=== PATIENT | male | born 1985 | race Caucasian/White ===

== ENCOUNTER → 2017-11-05 | Outpatient (CLI) | payer BC ==
[2017-11-05] VITALS (9 sets, daily range): BP systolic 131–160; BP diastolic 80–113
[~2017-11-05] VITALS: Ht 172.7 cm; Wt 108.9 kg
[~2017-11-05] MED LIST: CHOL100013 PO; GELATIN SPONGE SIZE 12-7MM SPONGE. ONE; LIDOCAINE WITH 8.4% SOD BICARB 3 ML DISP.SYRIN. IJ ONE; LIDOCAINE WITH 8.4% SOD BICARB 3 ML DISP.SYRIN. ONE; MIDAZOLAM HCL/PF 2 MG/2 ML VIAL. IV ONE; MIDAZOLAM HCL/PF 2 MG/2 ML VIAL. ONE; POTA10TA12 PO; PSYL0.527 PO; SPIR25TA5 PO; fentaNYL PF VIAL 100 MCG/2 ML VIAL IV ONE; fentaNYL PF VIAL 100 MCG/2 ML VIAL ONE
[2017-11-05 08:45] LABS: BASO # 0.1 x10^3/uL (0.0-0.2); BASO % 1 % (0-3); EOS # 0.1 x10^3/uL (0.0-0.7); EOS % 2 % (0-3); HEMATOCRIT 49.2 % (39.0-53.0); HEMOGLOBIN 17.1 g/dL (13.0-17.5); LYMPH # 2.6 x10^3/uL (1.0-4.8); LYMPH % 35 % (24-48); MEAN CORPUSCULAR HEMOGLOBIN 32 pg (25-35); MEAN CORPUSCULAR HGB CONC 35 g/dL (31-37); MEAN CORPUSCULAR VOLUME 91 fL (79-100); MONO # 0.7 x10^3/uL (0.0-1.1); MONO % 9 % (0-9); NEUT # 3.8 x10^3uL (1.8-7.7); NEUT % 52 % (31-73); PLATELET COUNT 213 x10^3/uL (140-400); RED BLOOD COUNT 5.43 x10^6/uL (4.30-5.70); RED CELL DISTRIBUTION WIDTH 13.3 % (11.5-14.5); WHITE BLOOD COUNT 7.3 x10^3/uL (4.0-11.0)
[2017-11-05 08:54] LABS: CALCIUM 8.2 mg/dL (8.5-10.1); CREATININE 1.6 mg/dL (0.7-1.3); GFR 50.3; POTASSIUM 3.6 mmol/L (3.5-5.1)
[2017-11-05 08:55] LABS: PROTHROMBIN TIME PATIENT 11.3 SEC (11.7-14.0)
[2017-11-05 08:58] LABS: ALBUMIN 3.4 g/dL (3.4-5.0); PHOSPHORUS 3.4 mg/dL (2.6-4.7)
[2017-11-05 09:00] LABS: BILIRUBIN,URINE NEGATIVE (NEG); CLARITY,URINE CLEAR; COLOR,URINE YELLOW; NITRITE,URINE NEGATIVE (NEG); PH,URINE 6.5; PROTEIN,URINE >=300 mg/dL (NEG-TRACE); UROBILINOGEN,URINE 0.2 mg/dL (0.2 mg/dL)
[2017-11-05 09:11] LABS: BACTERIA,URINE FEW /HPF (0-FEW); SQUAMOUS EPITHELIAL CELL,UR OCC /LPF; WBC,URINE OCC /HPF (0-4)
--- NOTE | 2017-11-05 10:22 | PDOC ---
MODERATE SEDATION ASSESSMENT RISKS/ALTERNATIVES Risks/Alternatives Risks and alternatives of this type of sedation and procedure discussed with: RISK/ALTERNATIVES: Patient H & P ON CHART H & P H & P on chart and reviewed for co-morbid conditions and appropriate labs. H&P ON CHART: Yes STATUS PREG STATUS ASSESSED: Yes MEDS/ALLERGIES REVIEWED Meds/Allergies Reviewed Medications and Allergies including time and route of recently administered narcotics and sedatives. MEDS/ALLERGIES REVIEWED: Yes ASA RATING ASA RATING: II AIRWAY ASSESSMENT Airway Assessment Airway patency, oral function limitations, presence of caps, crowns, dentures, partials, and ability to extend neck assessed. AIRWAY ASSESSMENT: Yes MALLAMPATI SCORE MALLAMPATI SCORE: II PRE-SEDATION ASSESSMENT PRE-SEDATION ASSESSMENT: Yes JASVIR ROMAN MD Nov 05, 2017 10:22
--- NOTE | 2017-11-05 10:24 | PDOC1 ---
History and Physical Date of Procedure Date of Admission History of Present Illness Reason for Visit Adult male with proteinuria Past Medical History Past Medical History see nursing pre-op assessment Current Medications Current Medications Current Medications Lidocaine/Sodium Bicarbonate (Buffered Lidocaine 1%) 3 ml STK-MED ONCE .ROUTE ; Start 11/05/17 at 09:36; Stop 11/05/17 at 09:37; Status DC Gelatin (Gelfoam Size 12-7mm) 1 each STK-MED ONCE .ROUTE ; Start 11/05/17 at 09 :36; Stop 11/05/17 at 09:37; Status DC Midazolam HCl (Versed) 2 mg STK-MED ONCE .ROUTE ; Start 11/05/17 at 09:41; Stop 11/05/17 at 09:42; Status DC Fentanyl Citrate (Fentanyl 2ml Vial) 100 mcg STK-MED ONCE .ROUTE ; Start at 09:41; Stop 11/05/17 at 09:42; Status DC Lidocaine/Sodium Bicarbonate (Buffered Lidocaine 1%) 9 ml 1X ONCE IJ Last administered on 11/05/17at 10:14; Start 11/05/17 at 10:15; Stop 11/05/17 at 10:16 ; Status DC Midazolam HCl (Versed) 2 mg 1X ONCE IV Last administered on 11/05/17at 10:15; Start 11/05/17 at 10:15; Stop 11/05/17 at 10:16; Status DC Fentanyl Citrate (Fentanyl 2ml Vial) 100 mcg 1X ONCE IV Last administered on at 10:15; Start 11/05/17 at 10:15; Stop 11/05/17 at 10:16; Status DC Active Scripts Active Reported Vitamin D (Cholecalciferol (Vitamin D3)) 1,000 Unit Capsule 1 Cap PO DAILY Fiber (Psyllium Husk) 0.52 Gm Capsule 5 Cap PO [id number] Potassium Chloride 10 Meq Tab.sr.24h 10 Meq PO DAILY Spironolactone 25 Mg Tablet 4 Tab PO 5XDAY Allergies Allergies: Coded Allergies: No Known Drug Allergies (Unverified , 11/05/17) Physical Exam Vital Signs Vital Signs Date Time Temp Pulse Resp B/P (MAP) Pulse Ox O2 Delivery O2 Flow Rate FiO2 11/05/17 10:16 54 12 95 Nasal Cannula 4.0 11/05/17 08:54 98.3 140/89 (106) 98.3 Other see nursing pre-op assessment Assessment Assessment Proteinuria Plan Plan US renal biopsy JASVIR ROMAN MD Nov 05, 2017 10:24
--- NOTE | 2017-11-05 10:25 | PDOC ---
BRIEF OPERATIVE NOTE Pre-Op Diagnosis Proteinuria Post-Op Diagnosis same Procedure Performed US right renal biopsy Surgeon Jn Anesthesia Type: Conscious Sedation Specimens Obtained 4 x 18g cores divided between Formalin and Manny's solution Findings Right renal biopsy Complications No immediate JASVIR ROMAN MD Nov 05, 2017 10:25
--- NOTE | 2017-11-05 18:35 | RAD ---
Procedure: Ultrasound guided right renal biopsy Clinical Indication: 32-year-old with proteinuria Sedation: Conscious sedation was administered with a total intraprocedural koex-qd-obso time of 20 minutes. The patient was monitored by a qualified independent observer throughout the time of sedation. Please refer to the medical record for exact doses of medications utilized to achieve moderate sedation. Antibiotics: None Sterility: All elements of maximal sterile barrier technique including the use of a cap, mask, sterile gown, sterile gloves, large sterile sheet, appropriate hand hygiene, and 2% chlorhexidine for cutaneous antisepsis (or acceptable alternative antiseptic per current guidelines) were followed for this procedure. Consent: The procedure was explained in its entirety to the patient or the patients designated route service representative by a member of the treatment team, including a discussion of the risks, benefits and commonly accepted alternatives to the procedure, as well as the expected consequences of no therapy whatsoever. Discussion of the risks included, but was not limited to, those that are most frequent and those that are rare but possibly severe or life-threatening, as well as the possibility of unforeseen complications. Technique and Findings: Following informed consent, the patient was prepped and draped in usual sterile fashion. Ultrasound interrogation of the right kidney was performed demonstrating no hydronephrosis or masses. A hardcopy ultrasound image was recorded as a 17-gauge needle guide was advanced to the inferior pole of the right kidney and 4 x 18-gauge core biopsy specimens were obtained and divided between formalin and Manny's solution. Gelfoam pledgets were applied as the needle guide was removed and hemostasis was achieved with manual compression. Complications: None Impression: 1. Ultrasound-guided right renal biopsy as described
--- NOTE | 2017-11-08 13:09 | PATHOLOGY ---
[facility] Accession Number: [id number] . 01 Material submitted: . RIGHT RENAL BIOPSY . 01 Clinical history: . Proteinuria See attached requisition for additional information . 02 Diagnosis: Special studies report received from [employer], [address] [place] [address], [facility] [address] [address], on case [id number], labeled with their number [id number], dated 11/06/2017. . Specimen submitted: By Kalia Barragan MD For Kidney, biopsy . DIAGNOSIS: Focal Segmental and Global Glomerulosclerosis. See Comment. . Tubular Atrophy and Interstitial Fibrosis, Moderate to Severe. . Arteriosclerosis, Mild. . Comment: Sampling for light microscopy shows 9 glomeruli, 5 of which are globally sclerotic and 2 display segmental scleroses (FSGS). The differential diagnosis includes primary and secondary forms of the disease. In this patient, in the light of renal biopsy findings a secondary form is favored. Clinical correlation is required. . Clinical History: The patient is a 32 year-old male who presents for evaluation of high blood present and proteinuria. . Gross Description: Received from [facility] via [facility] are two specimen bottles; one bottle contains formalin and the other contains Bogdan's fixative. The bottles are labeled with the patient's name (Jerod Dolan). Both bottles are foreign. . Received in formalin are two pieces of vu tissue measuring 1.0 x 0.1 x 0.1 cm (with a fatty end, dissected off) and 1.7 x 0.1 x 0.1 cm (vu). Two ends are submitted for electron microscopy and the remainder of the tissue is submitted in its entirety for light microscopy. . Received in Bogdan's fixative are two pieces of vu tissue measuring 1.0 x 0.1 x 0.1 cm (folded) and 1.3 x 0.1 x 0.1 cm. The specimen is submitted in its entirety for immunofluorescence microscopy. . Microscopic Description: LIGHT MICROSCOPY: . Tissue submitted for light microscopic examination is represented by approximately 80% cortex and 20% medulla. There are up to nine glomeruli present, five of which are globally sclerotic. The glomeruli range from normal to mildly enlarged and exhibit mild segmental increase in mesangial matrix. Two glomeruli display perihilar segmental sclerosis. The glomeruli focally display juxtaglomerular apparatus hyperplasia. One glomerulus displays ischemic changes. There is no evidence of endocapillary proliferation, necrosis, or crescent formation. There is moderate to severe tubular atrophy and interstitial fibrosis involving approximately 50% of the cortex sampled. Focal tubulointerstitial calcification is identified. There is mild chronic inflammation seen in the areas of sampled. Focal tubulointerstitial calcification is identified. There is mild chronic inflammation seen in the areas of tubulointerstitial scarring. Blood vessels exhibit mild intimal fibrosis. No evidence of arteritis identified. Toluidine blue-stained sections for electron microscopy show two glomeruli, none of which are globally sclerotic. One glomerulus displays segmental sclerosis. The rest of the histological changes are similar to those described above. . Standard of care requirements for proper analysis of renal biopsies mandates serial sections, and PAS, Murdock silver, trichrome and SMMT stains at multiple levels. PAS stains are used to evaluate various aspects of the glomerular, tubular, and vascular basement membranes. Murdock silver stains are used to evaluate thickening, reduplication, "spiking" or "bubbling" of the glomerular basement membrane. Toluidine blue stained sections highlight glomerular basement membranes and demonstrates unusual types of deposits. It also reveals details of tubular epithelial cells and aids in the analysis of vascular lesions. Mallory trichrome stains are used to evaluate interstitial fibrosis and basement membrane deposits. The SMMT stain helps evaluate basement membrane changes, immune deposits and tubulointerstitial scarring. Controls are routinely run on all special stains and are verified for acceptability. A review of the technical quality of routine slides is made before results are reported. . IMMUNOFLUORESCENCE: The sections are stained for IgG, IgM, IgA, C3, C1q, albumin, fibrinogen, kappa and lambda light chains. Nine glomeruli are present for evaluation including five globally sclerotic. All stains are negative in glomeruli. There is no significant extraglomerular staining. [employer] and lambda stain equally throughout the tubulointerstitium. . Positive and negative controls are run on all immunofluorescent stains and are verified for acceptability before results are reported. Internal antigens serve as positive controls. . ELECTRON MICROSCOPY: Two blocks are prepared. Ultrastructural evaluation of a glomerulus reveals basement membranes which appear to be of normal thickness with mild segmental thickening. Glomerular capillary loops are patent. No immune-type electron-dense deposits are present along the glomerular basement membranes or within the mesangium. There is moderate to severe epithelial foot process effacement. The tubular basement membranes show mild thickening. . Special procedures including immunofluorescence and electron microscopy correlate with the light microscopy findings. . Note: Some of the tests reported here may have been developed and performance characteristics determined by [employer]. They have not been cleared or approved by the U.S. Food and Drug Administration (FDA). The FDA does not require this test to go through premarket FDA review. This test is used for clinical purposes. It should not be regarded as investigational or for research. [employer] is certified under the Clinical Laboratory Improvement Amendments of 1988 (CLIA) as qualified to perform high complexity clinical laboratory testing. . Physician/Physician's office called on 11/06/2017 at 3:11 PM Central. . *I have reviewed the clinical history, the pertinent gross findings, all microscopic materials, discussed the case with the clinician when appropriate, and have rendered the final diagnosis. . CPT Codes Performed: 00222; 25803f1; 56945; 83202; 74425-AT; 40501h4 lCD Codes: N06.1 . Final Diagnosis performed by Alexey Burr M.D. Electronically signed 11/06/2016 5:16:07 PM . . A complete copy of the report is on file. . Professional and technical services performed by [facility] at [address] [place] [address], [address], [facility]. . (AMJ 11/07/2017) . AZJ/11/07/2017 . 02 Electronically signed: . Jordy Man MD, Pathologist NPI- [id number] . 01 Gross description: . Received in a vial of formalin, labeled "Jerod Dolan, right renal biopsy," are 2 needle cores of vu soft tissue, measuring 0.9 and 1.5 Cm in length. All tissues are sent to, and the final report will be submitted from, the [facility]. . Received in a vial of Bogdan's solution, labeled "Jerod Dolan, right renal biopsy," are 2 needle cores of pink-vu soft tissue, measuring 0.6 and 0.9 cm in length. All tissues are sent to, and the final report will be submitted from, [facility]. (TSD; 11/05/2017) TOB/TOB . 02 CPT . 460839 Specimen Comment: A courtesy copy of this report has been sent to Specimen Comment: [phone], , . Specimen Comment: Report sent to , DR BARRAGAN / DR HARRY Performed at: 01 [facility] [address] [id number] MD Jonathon Leo MD Phone: [phone] Performed at: 02 [facility] [address] [place], [place] [id number] MD Jordy Man MD Phone: [phone]
== END | disposition home or self-care (01) ==
LOC: INTRAD 08:25
PROVIDERS: ATTEND Internal Medicine Nephrology
DX: N26.9 Renal sclerosis, unspecified (principal); Z79.01 Long term (current) use of anticoagulants; Z79.899 Other long term (current) drug therapy
CPT/HCPCS: 36415; 50200; 76942; 80069; 81001; 82570; 84156; 85025; 85610; 88305; 99152; J2250; J3010

== ENCOUNTER → 2017-12-24 | Day surgery (SDC) | payer BC ==
[~2017-12-24] MED LIST changes: +BENA20TA4 PO; -GELATIN SPONGE SIZE 12-7MM SPONGE. ONE; +LIDOCAINE 2%/EPI 1:100,000 20 ML VIAL. IJ ONE; -LIDOCAINE WITH 8.4% SOD BICARB 3 ML DISP.SYRIN. IJ ONE; -LIDOCAINE WITH 8.4% SOD BICARB 3 ML DISP.SYRIN. ONE; -MIDAZOLAM HCL/PF 2 MG/2 ML VIAL. IV ONE; -MIDAZOLAM HCL/PF 2 MG/2 ML VIAL. ONE; +MULT1TAB52 PO; +RED600TA PO; -fentaNYL PF VIAL 100 MCG/2 ML VIAL IV ONE; -fentaNYL PF VIAL 100 MCG/2 ML VIAL ONE
[2017-12-24 13:49] VITALS: BP 135/91
--- NOTE | 2017-12-24 15:20 | PDOC4 ---
Operative Note Operative Note Date: 12/24/2017 Preoperative diagnosis: Lipomas 3 Postoperative diagnosis: Same Procedure: Excision of lipomas Specimens: Right lower quadrant abdominal lipoma, left lower quadrant abdominal lipoma, mid back lipoma Surgeon: Juan Manuel Dictation: Patient is a 32-year-old male with complaints of several subcutaneous masses one in the right lower quadrant of his abdomen left lower quadrant of the abdomen and one in the mid back procedure of excision of masses was explained to the patient detail was benefits were also discussed including bleeding infection alternatives to this procedure also discussed with the patient seemed understanding gave both verbal and written consent had procedure performed. Patient was taken to the minor was room placed in the supine position the area over the right and left lower quadrant abdominal masses were prepped and draped usual sterile fashion using ChloraPrep using 1% lidocaine with epinephrine area over the masses injected and anesthetized incision was made 15 blade scalpel was carried down through subcutaneous tissues to the mass which was excised sharply mass on both sides were 3 x 3 cm. The wounds were then closed with a single layer running 4-0 subcuticular Monocryl Mastisol Steri -Strips and island dressings were applied. Patient was repositioned in the sitting position and area on his mid back was prepped and draped usual sterile fashion using ChloraPrep again area was anesthetized with 1% lidocaine with epinephrine was this was complete incisions made 15 blade scalpel down to the mass mass was excised sharply with scissors and sent for pathology the mass again size was 3 x 3 cm. Wound was closed with a single running 4-0 subcuticular Monocryl Mastisol Steri-Strips and island dressings were applied. Patient tolerated procedure well was discharged home in stable condition all sponge instrument needle counts listed as correct estimated blood loss 10 mL DAVID GRIFFIN MD Dec 24, 2017 15:20
--- NOTE | 2017-12-26 15:08 | PATHOLOGY ---
[facility] Accession Number: [id number] . 01 Material submitted: . PART A: LEFT LOWER ABDOMINAL MASS PART B: RIGHT LOWER ABDOMINAL MASS PART C: MID BACK MASS . 01 Clinical history: . lipomas abdomen and back . 02 Diagnosis: A. Fibroadipose tissue, left lower abdominal mass: - Lipoma with focal features of angiolipoma. . B. Fibroadipose tissue, right lower abdominal mass: - Lipoma with focal features of angiolipoma. . C. Fibroadipose tissue, mid back mass: - Lipoma with focal features of angiolipoma. LB/12/26/2017 . 02 Comment: There is no evidence of malignancy. (JPM/db; 12/26/2017) . 02 Electronically signed: . Jordy Man MD, Pathologist NPI- [id number] . 01 Gross description: . A. The specimen is received in formalin, labeled "Magdlaeno, Jerod, left lower abdominal mass" and consists of a multinodular and encapsulated segment of yellow adipose tissue measuring 2.3 x 2.2 x 1.5 cm. It is inked black and sectioned to reveal homogeneous yellow cut surfaces. Scale [employer] sections are submitted in A1-A2. . B. The specimen is received in formalin, labeled "Magdaleno, Jerod, right lower abdominal mass" and consists of a partially encapsulated segment of yellow adipose tissue measuring 2.0 x 1.7 x 1.5 cm. It is inked black and sectioned to reveal homogeneous yellow cut surfaces. Scale Model Maker sections are submitted in B1. . C. The specimen is received in formalin, labeled "Magdaleno, Jerod, mid back mass" and consists of a partially encapsulated segment of yellow adipose tissue measuring 2.9 x 1.8 x 1.1 cm. It is inked black and sectioned to reveal homogeneous yellow cut surfaces. Scale Model Maker sections are submitted in C1. (SDY; 12/25/2017) SYU/SYU . 02 Pathologist provided ICD-10: D17.79 . 02 CPT . 557386, 908637, 922641 Specimen Comment: A courtesy copy of this report has been sent to Specimen Comment: [phone], , . Specimen Comment: Report sent to ,DR BONNER / DR HARRY Specimen Comment: A duplicate report has been generated due to demographic updates. Performed at: 01 [facility] [address] [facility] [address], [place] [id number] MD Jonathon Leo MD Phone: [phone] Performed at: 02 [facility] [address] [place], [place] [id number] MD Jordy Man MD Phone: [phone]
== END ==
LOC: SURG 13:26
PROVIDERS: ATTEND Surgery
DX: D17.1 Benign lipomatous neoplasm of skin and subcutaneous tissue of trunk (principal); I10 Essential (primary) hypertension; E78.00 Pure hypercholesterolemia, unspecified; Z79.899 Other long term (current) drug therapy; Z98.890 Other specified postprocedural states; E26.81 Bartter's syndrome; Z82.49 Family history of ischemic heart disease and other diseases of the circulatory system; Z80.9 Family history of malignant neoplasm, unspecified; Z88.8 Allergy status to other drugs, medicaments and biological substances
CPT/HCPCS: 21931; 88304; J3490